=== PATIENT | female | born 1950 | race Caucasian/White ===

== ENCOUNTER → 2016-08-01 | Outpatient (CLI) | payer OTHER ==
[2016-08-01 14:58] LABS: BASOPHILS # (AUTO) 0.02 10*3/UL; BASOPHILS % (AUTO) 0.3 % (0-1); EOSINOPHILS % (AUTO) 0.9 % (0-8); HEMATOCRIT 43.7 % (37.0-47.0); IMM GRAN % (AUTO) 0.3 % (0-5); IMM GRAN# (AUTO) 0.02 10*3/UL; LYMPHOCYTES # (AUTO) 1.33 10*3/uL; LYMPHOCYTES % (AUTO) 19.6 % (10-50); MEAN CORPUSCULAR HEMOGLOBIN 34.8 PG (27-31); MEAN CORPUSCULAR HGB CONC 34.3 g/dL (33-37); MEAN PLATELET VOLUME 9.7 FL (7.4-12.2); MONOCYTES % (AUTO) 10.3 % (5-15); NEUTROPHILS # (AUTO) 4.64 10*3/UL; NEUTROPHILS % (AUTO) 68.6 % (50-80); RDW COEFFICIENT OF VARIATION 12.5 % (11.5-14.5); RED BLOOD COUNT 4.31 10^6/uL (4.20-5.40); WHITE BLOOD COUNT 6.77 10^3/uL (4.8-10.8)
[2016-08-01 15:01] LABS: PLATELET MORPHOLOGY COMMENT NORMAL MORPHOLOGY (NORM)
[2016-08-01 15:14] LABS: CHLORIDE 100 meq/L (98-112); POTASSIUM 3.9 meq/L (3.8-5.2); SODIUM 137 meq/L (135-145)
[2016-08-01 15:15] LABS: ASPARTATE AMINO TRANSFERASE 35 IU/L (8-39); BILIRUBIN,TOTAL 0.7 mg/dL (0.3-1.2); BLOOD UREA NITROGEN 6 mg/dL (7-22); CALCIUM 9.7 mg/dL (8.7-10.7); CREATININE 0.5 mg/dL (0.50-1.20); EST GLOMERULAR FILTRATION > 60 (>60 ml/min/1.73m(2)); GLUCOSE 163 mg/dL (78-110); TOTAL PROTEIN 8.5 g/dL (6.1-8.0)
--- NOTE | 2016-08-01 19:24 | DI ---
CT SOFT TISSUE NECK W/CONTRAST,08/01/2016 3:43 PM: Clinical History: Neck swelling Previous Exam: None at this facility. Findings: Multiple helically acquired CT images are obtained through the neck following the intravenous adminis tration of 75 cc of Isovue 300. The base of the skull is unremarkable and visualized portions of the [place] are unremarkabl e. The intraorbital structures are unremarkable. There is complete opacification of the right maxillary sinus. There is also some opacification of the right ethmoid sinuses. The mastoid air cells are unremarkable. Diffuse degenerative changes are seen throughout the cervical spine. Multiple symmetric cervical lymph nodes are noted none of which are pathologic by size criteria. Ther e is no fluid collection identified. Diffuse facet hypertrophy is seen throughout the cervical spine worst at the C5/6 and C6/7 levels whe re there is uncovertebral joint and facet hypertrophy. Impression: 1. Complete opacification of the right maxillary sinus and right ethmoid sinuses consistent with sinu sitis. 2. No pathologically enlarged lymph nodes. 3. No fluid collection.
[2016-08-04 07:10] LABS: SMITH ANTIBODY <0.2 U (())
== END ==
LOC: LAB 14:36
PROVIDERS: ATTEND Student in an Organized Health Care Education/Training Program
DX: R22.1 Localized swelling, mass and lump, neck (principal); R63.0 Anorexia; R13.10 Dysphagia, unspecified; M33.90 Dermatopolymyositis, unspecified, organ involvement unspecified; I10 Essential (primary) hypertension; F17.210 Nicotine dependence, cigarettes, uncomplicated
CPT/HCPCS: 36415; 70491; 80053; 85025; 86235

== ENCOUNTER 2016-09-20 08:39 | Inpatient (IN) | payer OTHER ==
[2016-09-20] MEDS ORDERED: Sodium Chloride 0.9% 1,000 ML PRIMARY IV ONE (08:50)
--- NOTE | 2016-09-20 08:54 | EKG ---
[address] [address] Measurements Intervals [place] Rate: 62 P: 73 ID: [id number] QRS: 57 QRSD: 96 T: 43 QT: 410 QTc: 415 Interpretive Statements SINUS RHYTHM Compared to ECG 07/23/2016 14:35:25 No significant changes Electronically Signed On 09-20-16 11:04:32 MST by Dimas Card MD [email or web address]
--- NOTE | 2016-09-20 09:11 | DI ---
CT HEAD W/O CONTRAST,09/20/2016 8:48 AM: Clinical History: Left-sided weakness Previous Exam: None at this facility. Findings: Multiple helically acquired CT images are obtained through the brain without contrast, and demonstrat e age-related volume loss. There is no mass, hemorrhage or midline shift. Surrounding soft tissue and osseous structures are unremarkable. Impression: Normal CT head.
[2016-09-20 09:57] LABS: BASOPHILS # (AUTO) 0.02 10*3/UL; BASOPHILS % (AUTO) 0.3 % (0-1); EOSINOPHILS % (AUTO) 0.9 % (0-8); HEMATOCRIT 46.9 % (37.0-47.0); HEMOGLOBIN 16.2 g/dL (12.0-16.0); IMM GRAN % (AUTO) 0.1 % (0-5); IMM GRAN# (AUTO) 0.01 10*3/UL; LYMPHOCYTES # (AUTO) 0.99 10*3/uL; LYMPHOCYTES % (AUTO) 12.8 % (10-50); MEAN CORPUSCULAR HEMOGLOBIN 34.2 PG (27-31); MEAN CORPUSCULAR HGB CONC 34.5 g/dL (33-37); MONOCYTES # (AUTO) 0.63 10*3/UL (0.3-0.8); MONOCYTES % (AUTO) 8.1 % (5-15); NEUTROPHILS # (AUTO) 6.02 10*3/UL; NEUTROPHILS % (AUTO) 77.8 % (50-80); RDW COEFFICIENT OF VARIATION 13.1 % (11.5-14.5); RED BLOOD COUNT 4.73 10^6/uL (4.20-5.40); WHITE BLOOD COUNT 7.74 10^3/uL (4.8-10.8)
[2016-09-20 10:00] LABS: PROTHROMBIN TIME 10.7 secs (9.7-11.4)
[2016-09-20 10:02] LABS: ASPARTATE AMINO TRANSFERASE 36 IU/L (8-39); BILIRUBIN,TOTAL 0.7 mg/dL (0.3-1.2); BLOOD UREA NITROGEN 4 mg/dL (7-22); BUN/CREATININE RATIO 6.66 (6-20); CALCIUM 10.6 mg/dL (8.7-10.7); CHLORIDE 98 meq/L (98-112); CREATININE 0.6 mg/dL (0.50-1.20); EST GLOMERULAR FILTRATION > 60 (>60 ml/min/1.73m(2)); GLUCOSE 85 mg/dL (78-110); POTASSIUM 4.1 meq/L (3.8-5.2); SERUM ALCOHOL 27 mg/dL (0-10); SODIUM 140 meq/L (135-145); TOTAL PROTEIN 8.2 g/dL (6.1-8.0)
[2016-09-20 10:03] LABS: PLATELET MORPHOLOGY COMMENT NORMAL MORPHOLOGY (NORM)
[2016-09-20] MEDS ORDERED: Sodium Chloride 0.9% 1,000 ML PRIMARY IV SCH (10:53)
[2016-09-20] MEDS ORDERED: LABETALOL 20 MG/4 ML (5 MG/1 ML) SYRINGE IVP PRN (10:53)
[2016-09-20] MEDS ORDERED: NORMAL SALINE 10 ML SYRINGE FLUSH IVP PRN (10:53)
[2016-09-20 11:16] LABS: LDL CHOLESTEROL,CALCULATED 160.6 mg/dL
[2016-09-20] MEDS ORDERED: Acetaminophen 1000mg Inj 1,000 MG in Premix 1 BAG IV ONE (11:27)
[2016-09-20 12:01] VITALS: RESP 20
[2016-09-20] MEDS ORDERED: ASPIRIN 600 MG SUPPOSITORY RECTAL ONE ×2 (12:15→12:30)
[2016-09-20 13:44] VITALS: TEMP 98.4
--- NOTE | 2016-09-20 13:47 | DI ---
MRI MRA HEAD W/O CN,09/20/2016 10:53 AM: Clinical History: Stroke. Previous Exam: None at this facility. Findings: Multiplanar MR images are obtained through the [place] following a 3-D [id number] protoc ol, and demonstrate no flow related enhancement within the right distal internal carotid artery. Ther e is some reconstitution of the right middle cerebral artery through a diminutive right posterior com municating artery. Left posterior communicating artery is also diminutive. The anterior communicating artery is intact. The anterior cerebral arteries are also intact. There is very little flow within the right cerebral hemisphere involving the right frontal, parietal and temp oral lobes. Impression: No flow related enhancement within the right distal internal carotid artery. This is consistent with an occlusion.
--- NOTE | 2016-09-20 13:53 | PDOC ---
History and Physical - History of Present Illness Date and Time of Service: 09/20/2016, 1345 Chief Complaint: Left-sided weakness History of Present Illness: This very pleasant 58-year-old female who has underlying history of hypertension who smokes and also drinks alcohol, who was found by her boyfriend to not be able to get up. The patient had complete left-sided weakness, left facial droop, and some slurred speech and she was brought in for evaluation. She was found to have a negative CT scan for bleed, and her blood pressure. Controlled. I ordered a cholesterol panel and showed elevated cholesterol. She appears to have complete left-sided neglect and her head is turned towards the right. She denies any pain other than a temporal headache. She's never had anything like this happen before there were no exacerbating factors. Time of onset is not known. Nothing made her symptoms better or worse. We admitted her, and I ordered MRI scans of the brain, and I just received a call from the radiologist stating that the right carotid artery appears almost completely occluded at their is a tiny amount of blood flow and there is also blood flow in the posterior communicating artery and he wondered if the patient might be a candidate for catheter directed thrombolytic therapy. She is right-handed. Past Medical History Medical History: 1. Tobacco abuse. 2. Hypertension. 3. Increased intraocular pressure. Surgical History: 1. Hysterectomy. 2. Lumpectomy Pertinent Family History: Positive for breast cancer. Past Social History: Smokes a pack per day, drinks 2 mugs of hard liquor per day. Has children that are described as healthy. Lives with her boyfriend. Tobacco Use: Current Every Day Smoker Substance Use Type: None Alcohol Use: Heavy Medication / Allergies Home Medications: Home Medications Medication Instructions Recorded Confirmed Type Calcium Carbonate/Vitamin D3 2 each PO DAILY 05/13/12 09/20/16 History [Calcium 600 + Vit D 400 Caplet] Aspirin 81 mg PO DAILY 04/14/14 09/20/16 History Zinc 50 mg PO DAILY 04/14/14 09/20/16 History Metoprolol Succinate 1 tab PO DAILY #90 tab 07/18/15 09/20/16 Clinic Potassium Gluconate 1 tab PO QD tab 08/31/15 09/20/16 History Propylene Glycol/Peg 400 [Systane 15 ml OP DAILY drp 08/31/15 09/20/16 History Ultra 0.4-0.3% Eye Drp] Brimonidine Tartrate/Timolol 1 drop OP QAM drop 10/30/15 09/20/16 History [Combigan 0.2%-0.5% Eye Drops] Amlodipine Besylate 1 tab PO DAILY #90 tab 04/11/16 09/20/16 Clinic Estradiol [Vagifem] 10 mcg VG 2XW #24 tab 04/11/16 09/20/16 Clinic Sulfasalazine 500 mg PO BID tab 05/29/16 09/20/16 History Levothyroxine Sodium [Synthroid] 1 tab PO DAILY tab 07/23/16 09/20/16 History Allergies/Adverse Reactions: Allergies Allergy/AdvReac Type Severity Reaction Status Date / Time varenicline tartrate Allergy Intermediate HIGH Verified 09/20/16 09:02 [From Chantix] ANXIETY PRED FORTE EYE DROP AdvReac Intermediate INCREASED Uncoded 09/20/16 09:02 EYE PRESSURE, PAIN Review of Systems - Review of Systems All Systems: Reviewed & No Additional Complaints Except as Stated (I did a 12 point review systems, and it is positive for a temporal headache and that discussed in history present illness. The patient has not been able to use the last side of her body.) Exam - Vitals Vital Signs: Vital Signs Temperature 98.4 F Temperature Source Oral Pulse Rate [Pulse Oximeter] 59 Respiratory Rate 20 Blood Pressure [Right Radial 139/67 Artery] Pulse Ox 96 Oxygen Flow Rate 2 Oxygen Delivery Method Nasal Cannula Height 5 ft 4 in Weight 126 lb 14.4 oz - General General Appearance: POSITIVE: No Acute Distress, Cooperative - Head Head Exam: POSITIVE: Normal Inspection, Normocephalic, Atraumatic - Eye Eye Exam: POSITIVE: No Scleral Icterus - ENT ENT Exam: POSITIVE: Mucous Membranes Moist - Neck Neck Exam: POSITIVE: Normal Inspection, No Tenderness, No Thyromegaly - Respiratory Respiratory Exam: POSITIVE: Clear to Auscultation - Bilaterally, Normal To Percussion - Cardiovascular Cardiovascular Exam: POSITIVE: RRR, No Murmur, No Clicks, No Gallops, No Rubs, No JVD Additional Cardiovascular Details: No carotid bruits. Harder to hear sounds on the right. - GI/Abdominal GI/Abdominal Exam: POSITIVE: Normal Bowel Sounds, Non Tender, Non Distended, Soft - Rectal Rectal Exam: POSITIVE: Deferred - External Exam: POSITIVE: Deferred Exam: POSITIVE: Deferred - Extremities Extremities Exam: POSITIVE: No Clubbing Present, No Edema Present, No Cyanosis Present - Neurological Neurological Exam: POSITIVE: Alert, Oriented x 3 Additional Neurological Exam Details: Positive for facial droop and some mild slurring of speech. She seems to have intact expressive and receptive speech. Muscle strength for left upper and lower extremity is 0 over 5. - Psychiatric Additional Psychiatric Exam Details: Looks very tired. Difficult to assess affect at this time. - Integumentary Integumentary Exam: POSITIVE: Normal Color, Warm, Dry, Intact Results - Labs CBC and BMP: 09/20/16 08:30 09/20/16 08:30 Labs - Last 24 Hours: Laboratory Results 09/20/16 Range/Units 11:08 Triglycerides 107 (44-200) mg/dL Cholesterol 253 H (120-200) mg/dL LDL Cholesterol, Calc 160.600 mg/dL VLDL Cholesterol 21 (0-40) mg/dL HDL Cholesterol 71 (40-150) mg/dL Cholesterol/HDL Ratio 3.56 (0-4.0) RATIO Laboratory Results 09/20/16 09/20/16 Range/Units 08:30 11:08 WBC 7.74 (4.8-10.8) 10^3/uL RBC 4.73 (4.20-5.40) 10^6/uL Hgb 16.2 H (12.0-16.0) g/dL Hct 46.9 (37.0-47.0) % MCV 99.2 H (81-99) FL MCH 34.2 H (27-31) PG MCHC 34.5 (33-37) g/dL RDW Std Deviation 47.6 (39-50) fL RDW Coeff of Bernadette 13.1 (11.5-14.5) % Plt Count 202 (140-350) 10*3/uL MPV 11.0 (7.4-12.2) FL Immature Gran % (Auto) 0.1 (0-5) % Neut % (Auto) 77.8 (50-80) % Lymph % (Auto) 12.8 (10-50) % [place] % (Auto) 8.1 (5-15) % Eos % (Auto) 0.9 (0-8) % Baso % (Auto) 0.3 (0-1) % Immature Gran # (Auto) 0.01 10*3/UL Neut # (Auto) 6.02 10*3/UL Lymph # (Auto) 0.99 10*3/uL [place] # (Auto) 0.63 (0.3-0.8) 10*3/UL Eos # (Auto) 0.07 10*3/UL Baso # (Auto) 0.02 10*3/UL WBC Morphology Comment Normal morphology (NORM) Plt Morphology Comment Normal morphology (NORM) RBC Morph Comment Normal morphology (NORM) PT 10.7 (9.7-11.4) secs INR 1.04 (0.00-5.90) N/A Sodium 140 (135-145) meq/L Potassium 4.1 (3.8-5.2) meq/L Chloride 98 (98-112) meq/L Carbon Dioxide 26 (23-33) meq/L Anion Gap 16 (5-20) BUN 4 L (7-22) mg/dL Creatinine 0.6 (0.50-1.20) mg/dL Estimated GFR > 60 (>60 ml/min/1.73m(2)) BUN/Creatinine Ratio 6.66 (6-20) Glucose 85 (78-110) mg/dL Calculated Osmolality 285.0 (267-292) mOsm/kg Calcium 10.6 (8.7-10.7) mg/dL Total Bilirubin 0.7 (0.3-1.2) mg/dL AST 36 (8-39) IU/L ALT 34 (9-52) IU/L Alkaline Phosphatase 110 (38-126) IU/L Total Protein 8.2 H (6.1-8.0) g/dL Albumin 4.6 (3.5-4.8) g/dL Globulin 3.6 (2.50-4.10) g/dL Albumin/Globulin Ratio 1.20 L (1.3-2.0) mg/g Triglycerides 107 (44-200) mg/dL Cholesterol 253 H (120-200) mg/dL LDL Cholesterol, Calc 160.600 mg/dL VLDL Cholesterol 21 (0-40) mg/dL HDL Cholesterol 71 (40-150) mg/dL Cholesterol/HDL Ratio 3.56 (0-4.0) RATIO Serum Alcohol 27 H (0-10) mg/dL - EKG Data -: EKG Interpreted by Me Rate: Normal EKG Shows Normal: Sinus Rhythm - Imaging Status: Image Reviewed by Me (Head CT scan, on my view, appears negative for acute bleed. MRA of the neck, I discussed with radiology, and it appears that there may be a brachiocephalic occlusion causing a steal phenomenon and STeal syndrome.) Assessment and Plan - Patient Problems (1) Stroke Current Visit: Yes Status: Acute Qualifiers: CVA mechanism: occlusion Precerebral and cerebral artery: carotid artery Laterality of affected vessel: right Qualified Description: Cerebrovascular accident (CVA) due to occlusion of right carotid artery Qualifier Code(s): (I63.231) Cerebral infarction due to unspecified occlusion or stenosis of right carotid arteries (2) Left hemiplegia Current Visit: Yes Status: Acute (3) Hypertension Current Visit: Yes Status: Acute Qualifiers: Hypertension type: essential hypertension Qualified Description: Essential hypertension Qualifier Code(s): (I10) Essential (primary) hypertension (4) Tobacco abuse Current Visit: Yes Status: Acute (5) Alcohol abuse Current Visit: Yes Status: Acute (6) Arterial steal syndrome Current Visit: Yes Status: Acute - Assessment / Plan Additional Assessment/Plan Details: Admit the patient, get MRIs as mentioned. Blood pressure discrepancy on the right shows 156/89, on the left 186/83 We have patient on a 45 angle and if kept her nothing by mouth. DVT Prophylaxis and aspirin rectally. Given the findings above I will call the interventional radiologist in [place] and the neurology team and hospitalist as this patient may benefit from catheter directed thrombo-lytic therapy. I have pushed the films up to [place] to discuss. needs statin would like to get swallow eval and then resume PO medications, and likely will need plavix smoking and alcohol cessation. I discussed code status and the patient is FULL CODE. Permissive hypertension. Tylenol for headache and when necessary for fever. Telemetry monitoring, reassuring the EKG is normal sinus, but when I make sure we were not missing atrial fibrillation as well. PT and OT evaluation.
--- NOTE | 2016-09-20 13:54 | DI ---
MRI BRAIN W/O CN,09/20/2016 10:53 AM: Clinical History: Stroke. Previous Exam: None at this facility. Findings: Multiplanar MR images are obtained through the brain without contrast, and demonstrate diffuse age-re lated volume loss. There is a large area of restricted diffusion involving the right frontal, parieta l and temporal lobes in the middle cerebral artery territory. There is also soft tissue density withi n the right maxillary sinus. There is no mass, hemorrhage or midline shift. There are a few scattered areas of increased FLAIR sig nal although the region of abnormally restricted diffusion only demonstrates mild early increased FLA IR signal and imperceptible T2 signal. The midline structures are unremarkable. The upper cervical spine is unremarkable. Impression: Large right MCA acute stroke with involvement of a large portion of the right frontoparietal and temp oral lobes. Right maxillary sinus disease.
--- NOTE | 2016-09-20 14:16 | DI ---
MRI MRA NECK W/O CN,09/20/2016 10:53 AM: Clinical History: Stroke Previous Exam: Previous CT and MRI from earlier today. Findings: 2-D [id number]-[id number] images are obtained through the neck, and demonstrate complete occlusion of the br achiocephalic artery without any visible flow in the common carotid artery. There is flow noted withi n the right subclavian artery, right vertebral artery however, evaluation is limited due to out of pl ane imaging of the right subclavian artery. The left carotid artery we appears to be widely patent with some mild disease within the bulb. Both vertebral arteries are patent although there is loss of signal within the proximal portions whic h is most likely due to tortuosity rather than to a true occlusion. Visualized portion of the basilar artery are unremarkable. There is some decreased signal in the dist al right vertebral artery, but this is also believed to be secondary to tortuosity in the vessel. The aortic arch is not well evaluated on this exam. Impression: Complete occlusion of the brachiocephalic artery with some flow seen within the subclavian artery and the vertebral artery although it is impossible to tell whether this is a subclavian steal syndrome. This does not appear to be a chronic subclavian steal syndrome as the right vertebral artery is small and the right posterior communicating artery is also small. Consider conventional angiography for fu rther evaluation.
--- NOTE | 2016-09-20 15:09 | DCSUMMARY ---
Hospitalization Summary Admit Date: 09/19/16 Discharge Date: 09/20/16 Primary Diagnosis:: stroke with left hemiparesis Hospital Course: This is a 66-year-old female who suffers from hypothyroidism, hypertension, tobacco abuse, and alcohol abuse. She was found by her boyfriend this morning to have left-sided weakness, slurred speech, and a droopy face, and she was brought in for evaluation, and found to have a stroke. We admitted her, got MRI and MRA scans done today, and found that she had a complete right carotid artery occlusion. I spoke with the neurologist and interventional radiologist in [place], and the patient is not a candidate for catheter directed thrombolytic therapy because it would be too high risk to bleed. However when I spoke to neurology, they felt the patient would be at increased risk for edema due to the size of the stroke and the stroke mechanism, which could put the patient at risk for needing hemicraniotomy to relieve pressure. Given this potential risks, I really have no way to monitor with head CT scans over the weekend as I do not have an in-house radiologist and it may take too long to respond to increased intracranial pressure from the stroke if that happens. [place] safer to transfer the patient, and spoke with the hospitalist who agreed to accept the patient. The neurologist will consult. In the time the patient was here, we gave her a dose of aspirin, have kept her nothing by mouth due to fear of aspiration risk, have allowed permissive hypertension, found that her cholesterol was elevated in order to statin, given Tylenol for headache, and ordered PT and OT. The patient is agreeable to transfer. She told me that she would be full code. Assessment and Plan: 1. As per discharge assessments noted 2. Disposition: Patient is discharged from [facility] 3. Condition on discharge, stable, but the nature of her condition could mean that her condition could deteriorate 4. Diet: Nothing by mouth 5. Activities: PT and OT 6. Follow-Up: 1. Primary care provider 7 days post discharge. 2. 7. Medications at the Time of Discharge: Active Medications Generic Name Dose Route Start Last Admin Trade Name Freq PRN Reason Stop Dose Admin Aspirin 600 mg 09/21/16 09:00 Aspirin Supp RECTAL DAILY VICTOR HUGO Atorvastatin Calcium 80 mg 09/20/16 21:00 Lipitor PO BEDTIME VICTOR HUGO Enoxaparin Sodium 40 mg 09/21/16 09:00 Lovenox Inj SUBCUT DAILY VICTOR HUGO Sodium Chloride 1,000 mls @ 125 mls/hr 09/20/16 10:53 09/20/16 13:11 Normal Saline PRIMARY IV 125 mls/hr .Q8H VICTOR HUGO Administration Sodium Chloride 25 mls @ 200 mls/hr 09/20/16 10:53 Normal Saline 0.9% IV .Post Infusion PRN No Primary IV for Flush ONLY Labetalol HCl 10 mg 09/20/16 10:53 Normodyne Inj IVP BOLUS PRN SBP > 220, DBP > 120 Levothyroxine Sodium 75 mcg 09/21/16 06:30 Synthroid PO DAILY@0630 VICTOR HUGO Pom (Brimonidine / 1 drop 09/21/16 09:00 Timolol [Combigan 0. OP 2%-0.5% Eye Drops] DAILY VICTOR HUGO Non-Formulary Medication 15 ml 09/21/16 09:00 Propylene Glycol/Peg 400 [Systane Ultra 0.4-0.3% Eye Drp] OP DAILY VICTOR HUGO Sodium Chloride 5 - 20 ml 09/20/16 10:53 Saline Flush IVP BID PRN Flush 8. Time, care, counseling and coordination of care for this discharge is greater than 30 minutes. Exam - Vitals Vital Signs: Vital Signs Temperature 98.4 F Temperature Source Oral Pulse Rate [Pulse Oximeter] 59 Respiratory Rate 20 Blood Pressure [Right Radial 139/67 Artery] Pulse Ox 96 Oxygen Flow Rate 2 Oxygen Delivery Method Nasal Cannula Height 5 ft 4 in Weight 126 lb 14.4 oz Note her blood pressure discrepancy in the right and left arm was 30 points difference on systolic blood pressure with it being higher on the right than the left. - General General Appearance: POSITIVE: Cooperative - Respiratory Respiratory Exam: POSITIVE: Clear to Auscultation - Bilaterally, Breathing Non Labored Additional Respiratory Exam Details: Coughing. - Cardiovascular Cardiovascular Exam: POSITIVE: RRR, No Murmur, No Clicks, No Gallops, No Rubs, No JVD - GI/Abdominal GI/Abdominal Exam: POSITIVE: Normal Bowel Sounds, Non Tender, Non Distended, Soft - Extremities Extremities Exam: POSITIVE: No Clubbing Present, No Edema Present, No Cyanosis Present - Neurological Neurological Exam: POSITIVE: Alert, Oriented x 3 Additional Neurological Exam Details: Facial droop and 0 over 5 muscle strength for left upper and lower extremity. Data Perinent Studies: Laboratory Results 09/20/16 09/20/16 Range/Units 08:30 11:08 WBC 7.74 (4.8-10.8) 10^3/uL RBC 4.73 (4.20-5.40) 10^6/uL Hgb 16.2 H (12.0-16.0) g/dL Hct 46.9 (37.0-47.0) % MCV 99.2 H (81-99) FL MCH 34.2 H (27-31) PG MCHC 34.5 (33-37) g/dL RDW Std Deviation 47.6 (39-50) fL RDW Coeff of [place] 13.1 (11.5-14.5) % Plt Count 202 (140-350) 10*3/uL MPV 11.0 (7.4-12.2) FL Immature Gran % (Auto) 0.1 (0-5) % Neut % (Auto) 77.8 (50-80) % Lymph % (Auto) 12.8 (10-50) % [place] % (Auto) 8.1 (5-15) % Eos % (Auto) 0.9 (0-8) % Baso % (Auto) 0.3 (0-1) % Immature Gran # (Auto) 0.01 10*3/UL Neut # (Auto) 6.02 10*3/UL Lymph # (Auto) 0.99 10*3/uL [place] # (Auto) 0.63 (0.3-0.8) 10*3/UL Eos # (Auto) 0.07 10*3/UL Baso # (Auto) 0.02 10*3/UL WBC Morphology Comment Normal morphology (NORM) Plt Morphology Comment Normal morphology (NORM) RBC Morph Comment Normal morphology (NORM) PT 10.7 (9.7-11.4) secs INR 1.04 (0.00-5.90) N/A Sodium 140 (135-145) meq/L Potassium 4.1 (3.8-5.2) meq/L Chloride 98 (98-112) meq/L Carbon Dioxide 26 (23-33) meq/L Anion Gap 16 (5-20) BUN 4 L (7-22) mg/dL Creatinine 0.6 (0.50-1.20) mg/dL Estimated GFR > 60 (>60 ml/min/1.73m(2)) BUN/Creatinine Ratio 6.66 (6-20) Glucose 85 (78-110) mg/dL Calculated Osmolality 285.0 (267-292) mOsm/kg Calcium 10.6 (8.7-10.7) mg/dL Total Bilirubin 0.7 (0.3-1.2) mg/dL AST 36 (8-39) IU/L ALT 34 (9-52) IU/L Alkaline Phosphatase 110 (38-126) IU/L Total Protein 8.2 H (6.1-8.0) g/dL Albumin 4.6 (3.5-4.8) g/dL Globulin 3.6 (2.50-4.10) g/dL Albumin/Globulin Ratio 1.20 L (1.3-2.0) mg/g Triglycerides 107 (44-200) mg/dL Cholesterol 253 H (120-200) mg/dL LDL Cholesterol, Calc 160.600 mg/dL VLDL Cholesterol 21 (0-40) mg/dL HDL Cholesterol 71 (40-150) mg/dL Cholesterol/HDL Ratio 3.56 (0-4.0) RATIO Serum Alcohol 27 H (0-10) mg/dL Patient Problems - Patient Problem List (1) Stroke Current Visit: Yes Status: Acute Qualifiers: CVA mechanism: occlusion Precerebral and cerebral artery: carotid artery Laterality of affected vessel: right Qualified Description: Cerebrovascular accident (CVA) due to occlusion of right carotid artery Qualifier Code(s): (I63.231) Cerebral infarction due to unspecified occlusion or stenosis of right carotid arteries (2) Left hemiplegia Current Visit: Yes Status: Acute (3) Hypertension Current Visit: Yes Status: Acute Qualifiers: Hypertension type: essential hypertension Qualified Description: Essential hypertension Qualifier Code(s): (I10) Essential (primary) hypertension (4) Tobacco abuse Current Visit: Yes Status: Acute (5) Alcohol abuse Current Visit: Yes Status: Acute (6) Arterial steal syndrome Current Visit: Yes Status: Suspected
[2016-09-20] MEDS ORDERED: ATORVASTATIN 40 MG TABLET PO SCH (21:00)
--- NOTE | 2016-09-21 01:08 | PDOC ---
Neuro Symptoms / Deficit HPI - General Chief Complaint: Neurological Complaints Stated Complaint: POSSIBLE STROKE Date Seen by Provider: 09/20/16 Time Seen by Provider: 08:55 Source: POSITIVE: Patient Exam Limitations: POSITIVE: No limitations Nurse's Notes Reviewed & Considered: Yes - History of Present Illness Initial Comments: The patient is a 66-year-old female. She is brought to the emergency room by her mounter hand, who lives with her. Patient arrived at 0839 and was initially seen by Dr. King, who ordered a CT scan of the head; I assumed care of the patient at 8:55 AM. Patient awoke about 1-1/2 hours [employer] and was not able to get out of bed because of left sided weakness. She called out to her mounter hand who picked her up and center on the commode and then put her back to bed and called 911 and the patient is brought to the emergency room by ambulance. Patient smokes a pack of cigarettes per day. History of hypertension. Body Location Affected: REPORTS: Other (Left side of face, left upper extremity and left lower extremity) Timing: REPORTS: Unknown (Patient awoke with left hemiplegia; this developed sometime during the night. Patient apparently was normal when she went to bed last night) Duration: Unknown (As above) Severity: Moderate Quality: REPORTS: Other (Patient denies any headache; denies any pain anywhere.) Context: DENIES: Insect Bite, Tick Bite, Falling Injury, Head Injury, Other Character of Deficit(s): REPORTS: Left, LUE, LLE, Facial (Left side of face), Weak (Left hemiplegia) Associated Symptoms: DENIES: Fever, Chills, Sweating, Chest Pain, Neck Pain, Back Pain, Headache, Fainting, Seizure, Altered Mental Status, Disoriented, Confused, Agitated, Trouble Concentrating, Trouble Thinking, Decreased Responsiveness, Unresponsive, Other Usual Ability to Walk/Stand: REPORTS: Walks w/o Assistance Usual Cognition: REPORTS: Alert & Oriented x3 Similar Symptoms Previously: No Recently seen/treated/hospitalized: No Any Prior Injuries Related to Current Complaint?: No - Patient Home Medications Home Medications: Home Medications Calcium Carbonate/Vitamin D3 [Calcium 600 + Vit D 400 Caplet] 2 each PO DAILY Aspirin 81 mg PO DAILY 04/14/14 Zinc 50 mg PO DAILY 09/18/14 Metoprolol Succinate 1 tab PO DAILY #90 tab 07/18/15 Potassium Gluconate 1 tab PO QD tab 08/31/15 Propylene Glycol/Peg 400 [Systane Ultra 0.4-0.3% Eye Drp] 15 ml OP DAILY drp Brimonidine Tartrate/Timolol [Combigan 0.2%-0.5% Eye Drops] 1 drop OP QAM drop 10/30/15 Amlodipine Besylate 1 tab PO DAILY #90 tab 04/11/16 Estradiol [Vagifem] 10 mcg VG 2XW #24 tab 04/11/16 Sulfasalazine 500 mg PO BID tab 05/29/16 Levothyroxine Sodium [Synthroid] 1 tab PO DAILY tab 07/23/16 - Patient Allergies Allergies/Adverse Reactions: Allergies Allergy/AdvReac Type Severity Reaction Status Date / Time varenicline tartrate Allergy Intermediate HIGH Verified 09/20/16 09:02 [From Chantix] ANXIETY PRED FORTE EYE DROP AdvReac Intermediate INCREASED Uncoded 09/20/16 09:02 EYE PRESSURE, PAIN Past Medical History - heen HEENT History: Cataracts, Chipped or Loose Teeth Additional HEENT History: BROKEN TEETH ALL OVER. Cardiovascular History: Hypertension Respiratory History: Shortness of Breath Additional Respiratory History: SOB AFTER EYE DROPS. DR. HEMPHILL SAID THAT MAY HAPPEN Gastrointestinal History: GI Bleed Additional Gastrointestinal History: reactal bleeding 1 year ago Genitourinary History: Denies History Endocrine History: Hypothyroidism Musculoskeletal History: Osteoporosis, Back Pain Prosthesis or Implant: No Neurological History: Denies History Blood Disorders: Denies History Psychiatric History: Denies History History of Sexually Transmitted Diseases: No Cancer History: Breast In Past Year Been Physically Harmed or Verbally Threatened: No History of MDRO: Unknown History of Other Communicable Diseases: No Tobacco Use: Current Every Day Smoker Alcohol Use: Occasionally Substance Use Type: None Previous Surgical History: Yes Type / Date of Surgery: BILAT CATARACT. BILAT EYE SURGERY RETINAL TEAR/HOLE. 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 HYSTERECTOMY Anesthesia Reactions: No Malignant Hyperthermia: No Significant Family History: No pertinent family hx Past Medical History Reviewed: Reviewed - No Changes ROS - Limitations ROS Limitations: No Limitations Constitution: REPORTS: Denies Symptoms Cardiovascular: REPORTS: Denies Cardiac Symptoms Respiratory: REPORTS: Denies Resp Symptoms Neurological: REPORTS: Facial Asymmetry (Left), Weakness (Left hemiplegia involving the face without front talus sparing; prominent weakness left upper and left lower extremity) Gastrointestinal: REPORTS: Denies GI Symptoms Endocrine: REPORTS: Denies Symptoms Musculoskeletal: REPORTS: Denies MS Symptoms Genitourinary: REPORTS: Denies Symptoms Eyes: REPORTS: Denies Symptoms ENT: REPORTS: Denies Symptoms Skin: REPORTS: Denies Skin Symptoms Lympathic: REPORTS: Denies Lympathic Symptoms Immunologic: POSITIVE: Denies Symptoms Psychiatric: POSITIVE: Denies Psych Symptoms Neuro Symptoms / Deficit Exam - General Appearance General Appearance: POSITIVE: No Acute Distress, Alert - HEENT HEENT: POSITIVE: Head Inspection Nml, Eyes Inspection Nml, Ears Inspection Nml, Nose Inspection Nml, Oral/Dental Inspect. Nml, Pharynx Inspect. Nml, PERRL, EOMI - Pupil Size Pupil Size: 4 mm: Bilateral (PERRLA) - Neuro / Psych Higher Functions: POSITIVE: Speech Abnormalities (Speech somewhat slurred due to weakness left facial nerve), Dysarthria. NEGATIVE: Oriented to Person, Oriented to Place, Oriented to Time, Normal Speech, Normal Cognition, Appropriate Mood, Appropriate Affect, Disoriented to Person, Disoriented to Place, Disoriented to Time, Cognition Abnormalities, Depressed Mood, Depressed Affect, Abnml Response to Command, No Response to Command, Eyes Open to Command , Slow Response to Command, Inapp Response to Command, Expressive Aphasia, Receptive Aphasia, Abnml Response to Pain, Withdraws to Pain, Flexor to Pain, Extensor to Pain, No Response to Pain, Other Cranial Nerves: POSITIVE: Dysarthria, Facial Palsy (Left facial palsy), Forehead Involved Cerebellar: POSITIVE: Normal As Tested Peripheral Exam: POSITIVE: Hemiplegia (Left) Reflexes: Patellar (R): 2+, Patellar (L): 2+ - Neck Neck: POSITIVE: Supple, Non-Tender, No Carotid Bruit - Respiratory Respiratory: POSITIVE: No Respiratory Distress, Breath Sounds Normal - Cardiovascular Cardiovascular: POSITIVE: Regular Rate & Rhythm, Heart Sounds Normal Peripheral Pulses: Radial (R): 2+, Radial (L): 2+ - Abdomen Abdomen: Soft: (All Quadrants), Normal Bowel Sounds: (All Quadrants), Denies Tenderness: (All Quadrants), No Splenomegaly: (All Quadrants), No Hepatomegaly: (All Quadrants), No Guarding: (All Quadrants), No Rebound: (All Quadrants), No Palpable Pulse: (All Quadrants), No Palpabale Mass: (All Quadrants), No Distention: (All Quadrants), No Rigidity: (All Quadrants) - Skin Skin: POSITIVE: Intact, Normal For Race, Warm, Dry, No Rash - Extremities Extremity: Non-Tender: (All Extremities), Normal ROM: (All Extremities), Normal Inspection: (All Extremities) Images - Complete Complete: 1 - Left facial palsy 2 - Prominent weakness left upper extremity, including very weak hand grasp 3 - Weakness left lower extremity Neuro Symptom/Deficit Progress - Results Reviewed by me Xrays/CTs/US Reviewed by me: Yes Discussed with Radiologist: Yes Radiology Findings: CT scan head without contrast reported as normal by radiologist Lab Results Reviewed: Yes Lab Results:: Laboratory Results 09/20/16 Range/Units 08:30 WBC 7.74 (4.8-10.8) 10^3/uL RBC 4.73 (4.20-5.40) 10^6/uL Hgb 16.2 H (12.0-16.0) g/dL Hct 46.9 (37.0-47.0) % MCV 99.2 H (81-99) FL MCH 34.2 H (27-31) PG MCHC 34.5 (33-37) g/dL RDW Std Deviation 47.6 (39-50) fL RDW Coeff of Bernadette 13.1 (11.5-14.5) % Plt Count 202 (140-350) 10*3/uL MPV 11.0 (7.4-12.2) FL Immature Gran % (Auto) 0.1 (0-5) % Neut % (Auto) 77.8 (50-80) % Lymph % (Auto) 12.8 (10-50) % [place] % (Auto) 8.1 (5-15) % Eos % (Auto) 0.9 (0-8) % Baso % (Auto) 0.3 (0-1) % Immature Gran # (Auto) 0.01 10*3/UL Neut # (Auto) 6.02 10*3/UL Lymph # (Auto) 0.99 10*3/uL [place] # (Auto) 0.63 (0.3-0.8) 10*3/UL Eos # (Auto) 0.07 10*3/UL Baso # (Auto) 0.02 10*3/UL WBC Morphology Comment Normal morphology (NORM) Plt Morphology Comment Normal morphology (NORM) RBC Morph Comment Normal morphology (NORM) PT 10.7 (9.7-11.4) secs INR 1.04 (0.00-5.90) N/A Sodium 140 (135-145) meq/L Potassium 4.1 (3.8-5.2) meq/L Chloride 98 (98-112) meq/L Carbon Dioxide 26 (23-33) meq/L Anion Gap 16 (5-20) BUN 4 L (7-22) mg/dL Creatinine 0.6 (0.50-1.20) mg/dL Estimated GFR > 60 (>60 ml/min/1.73m(2)) BUN/Creatinine Ratio 6.66 (6-20) Glucose 85 (78-110) mg/dL Calculated Osmolality 285.0 (267-292) mOsm/kg Calcium 10.6 (8.7-10.7) mg/dL Total Bilirubin 0.7 (0.3-1.2) mg/dL AST 36 (8-39) IU/L ALT 34 (9-52) IU/L Alkaline Phosphatase 110 (38-126) IU/L Total Protein 8.2 H (6.1-8.0) g/dL Albumin 4.6 (3.5-4.8) g/dL Globulin 3.6 (2.50-4.10) g/dL Albumin/Globulin Ratio 1.20 L (1.3-2.0) mg/g Serum Alcohol 27 H (0-10) mg/dL EKG Interpreted/Reviewed By Me:: Yes (normal; normal sinus rhythm) EKG Interpretation:: POSITIVE: Normal Sinus Rhythm, Normal Rate, Normal Intervals, Normal [place], Normal QRS, Normal ST/T - Patient's Progress Pain Medication Addressed: POSITIVE: Not Applicable School/Work Release Addressed: POSITIVE: Not Applicable Re-Examine Time:: 10:00 Re-Examine Comment: Unchanged Status: POSITIVE: Unchanged, Re-Examined Antibiotics Given: No - Consult Consult (If Yes, Name of Consulting MD & Time Called): Yes (Dr. 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
[2016-09-21] MEDS ORDERED: LEVOTHYROXINE 75 MCG TABLET PO SCH (06:30)
[2016-09-21] MEDS ORDERED: LEVOTHYROXINE IVP SCH (06:30)
[2016-09-21] MEDS ORDERED: SODIUM CHLORIDE 0.9% IVP SCH (06:30)
[2016-09-21] MEDS ORDERED: PEG OP SCH (09:00)
[2016-09-21] MEDS ORDERED: TIMOLOL OP SCH (09:00)
[2016-09-21] MEDS ORDERED: ASPIRIN 600 MG SUPPOSITORY RECTAL SCH ×3 (09:00)
[2016-09-21] MEDS ORDERED: ASPIRIN 325 MG TABLET PO SCH (09:00)
[2016-09-21] MEDS ORDERED: PROPYLENE GLYCOL OP SCH (09:00)
[2016-09-21] MEDS ORDERED: ENOXAPARIN SODIUM 40 MG/0.4 ML SYRINGE SUBCUT SCH (09:00)
[2016-09-21] MEDS ORDERED: BRIMONIDINE OP SCH (09:00)
== END 2016-09-20 15:44 | disposition short-term general hospital (02) | DRG 65 ==
LOC: ER 08:39 → MED/SURG 10:16
PROVIDERS: ADMIT Family Medicine; ATTEND Family Medicine
DX: I63.9 Cerebral infarction, unspecified (principal); I63.231 Cerebral infarction due to unspecified occlusion or stenosis of right carotid arteries; G81.94 Hemiplegia, unspecified affecting left nondominant side; E03.9 Hypothyroidism, unspecified; I10 Essential (primary) hypertension; Z72.0 Tobacco use; F10.10 Alcohol abuse, uncomplicated
CPT/HCPCS: 70450; 70544; 70547; 70551; 80053; 80061; 80320; 82948; 85025; 85610; 93005; 93010; 99284; J0131; J7030

== ENCOUNTER → 2016-12-26 | Outpatient (CLI) | payer OTHER | LOC: MMPC 11:11 | PROVIDERS: ATTEND Nurse Practitioner | DX: I63.511 Cerebral infarction due to unspecified occlusion or stenosis of right middle cerebral artery (principal); G81.04 Flaccid hemiplegia affecting left nondominant side; M33.90 Dermatopolymyositis, unspecified, organ involvement unspecified | CPT/HCPCS: 99214; G0463 ==

== ENCOUNTER → 2017-01-08 | Outpatient (CLI) | payer OTHER ==
--- NOTE | 2017-01-08 12:58 | DI ---
US RETROPERITONEUM,01/08/2017 8:01 AM: Clinical History: Chronic cystitis Previous Exam: None at this facility. Findings: Multiple grayscale and color Doppler sonographic images are obtained through the retroperitoneum, and demonstrate normal-appearing kidneys bilaterally without hydronephrosis nor nephrolithiasis. The right kidney measures 9.3 cm in length. The left kidney measures 8.3 cm in length. Both ureteral jets were identified. The urinary bladder is unremarkable. Impression: Normal retroperitoneal ultrasound.
== END ==
LOC: US 07:53
PROVIDERS: ATTEND Internal Medicine Infectious Disease
DX: N30.20 Other chronic cystitis without hematuria (principal); B96.89 Other specified bacterial agents as the cause of diseases classified elsewhere
CPT/HCPCS: 76770

== ENCOUNTER → 2017-01-16 | Outpatient (CLI) | payer OTHER ==
[2017-01-16 15:33] LABS: BILIRUBIN,URINE SMALL (NEG); CLARITY,URINE Slightly Cloudy (CLEAR); COLOR,URINE YELLOW; GLUCOSE, URINE (UA) NEGATIVE (NEG); NITRATE,URINE POSITIVE (NEG); OCCULT BLOOD,URINE NEGATIVE (NEG); PH,URINE 5.5 (5.0-8.5); PROTEIN,URINE 30 mg/dl (NEG); UROBILINOGEN,URINE 0.2 mg/dL (0.2)
[2017-01-16 15:34] LABS: BACTERIA,URINE MANY; SQUAMOUS EPITHELIAL CELL,UR MODERATE; URINE CASTS MODERATE; URINE CRYSTALS MODERATE; URINE SAMPLE TYPE VOIDED SPECIMEN
[2017-01-16 15:35] LABS: WBC,URINE 25-50
== END ==
LOC: MOB LAB 13:28
PROVIDERS: ATTEND Nurse Practitioner
DX: R30.0 Dysuria (principal); R35.0 Frequency of micturition; R39.15 Urgency of urination; R82.99 Other abnormal findings in urine
CPT/HCPCS: 81001; 87077; 87088; 87186

== ENCOUNTER → 2017-01-25 | Outpatient (CLI) | payer OTHER ==
[2017-01-25 15:34] LABS: BILIRUBIN,URINE NEGATIVE (NEG); CLARITY,URINE CLEAR (CLEAR); COLOR,URINE YELLOW; GLUCOSE, URINE (UA) NEGATIVE (NEG); NITRATE,URINE NEGATIVE (NEG); OCCULT BLOOD,URINE Trace-intact (NEG); PROTEIN,URINE NEGATIVE (NEG); UROBILINOGEN,URINE 0.2 EU/dL (0.2)
[2017-01-25 15:40] LABS: URINE SAMPLE TYPE CLEAN CATCH URINE
[2017-01-25 15:41] LABS: BACTERIA,URINE RARE; RENAL EPITHELIAL CELLS,URINE RARE
== END ==
LOC: MOB LAB 12:18
PROVIDERS: ATTEND Nurse Practitioner
DX: R30.0 Dysuria (principal); R82.99 Other abnormal findings in urine
CPT/HCPCS: 81001; 81003; 87077; 87088; 87186

== ENCOUNTER 2017-02-04 12:25 | Emergency (ER) | payer OTHER ==
[2017-02-04] MEDS ORDERED: NORMAL SALINE 10 ML SYRINGE FLUSH IVP PRN (13:10)
[2017-02-04] MEDS ORDERED: Sodium Chloride 0.9% 1,000 ML PRIMARY IV ONE (13:10)
[2017-02-04 13:13] VITALS: RESP 16; TEMP 97
--- NOTE | 2017-02-04 13:16 | EKG ---
[address] [address] Measurements Intervals [place] Rate: 70 P: 79 AL: 136 QRS: 66 QRSD: 97 T: 81 QT: 401 QTc: 422 Interpretive Statements SINUS RHYTHM Compared to ECG 09/20/2016 08:51:42 No significant changes Electronically Signed On 02-04-17 15:35:27 MDT by Dimas Card MD [email or web address]
[2017-02-04 13:26] LABS: BASOPHILS # (AUTO) 0.02 10*3/UL; BASOPHILS % (AUTO) 0.3 % (0-1); EOSINOPHILS # (AUTO) 0.02 10*3/UL; EOSINOPHILS % (AUTO) 0.3 % (0-8); HEMATOCRIT 42.2 % (37.0-47.0); HEMOGLOBIN 13.3 g/dL (12.0-16.0); LYMPHOCYTES # (AUTO) 0.72 10*3/uL; MEAN CORPUSCULAR HEMOGLOBIN 29.8 PG (27-31); MEAN CORPUSCULAR HGB CONC 31.5 g/dL (33-37); MEAN CORPUSCULAR VOLUME 94.4 FL (81-99); MEAN PLATELET VOLUME 9.8 FL (7.4-12.2); MONOCYTES # (AUTO) 0.45 10*3/UL (0.3-0.8); MONOCYTES % (AUTO) 6.2 % (5-15); NEUTROPHILS # (AUTO) 6.06 10*3/UL; NEUTROPHILS % (AUTO) 83.3 % (50-80); RED BLOOD COUNT 4.47 10^6/uL (4.20-5.40)
[2017-02-04 13:29] LABS: PLATELET MORPHOLOGY COMMENT NORMAL MORPHOLOGY (NORM); RBC MORPHOLOGY COMMENT NORMAL MORPHOLOGY (NORM); WBC MORPHOLOGY COMMENT NORMAL MORPHOLOGY (NORM)
[2017-02-04 13:36] LABS: BLOOD UREA NITROGEN 6 mg/dL (7-22); CALCIUM 10.2 mg/dL (8.7-10.7); EST GLOMERULAR FILTRATION > 60 (>60 ml/min/1.73m(2)); MAGNESIUM 1.6 mg/dL (1.6-2.4); SERUM ALBUMIN 3.8 g/dL (3.5-4.8)
[2017-02-04 13:48] LABS: CREATINE KINASE MB 0.64 NG/ML (0.00-5.00); TROPONIN I < 0.012 ng/mL (< 0.040)
[2017-02-04] MEDS ORDERED: Fleet Enema 133ml RECTAL ONE (14:01)
--- NOTE | 2017-02-05 02:55 | PDOC ---
General Adult HPI - General Chief Complaint: Abdomen Pain Stated Complaint: constipation and syncopal episode on toilet Date Seen by Provider: 02/04/17 Time Seen by Provider: 12:50 Source: POSITIVE: Patient, EMS, Other (son) Exam Limitations: POSITIVE: No limitations Nurse's Notes Reviewed & Considered: Yes EMS Report Reviewed & Considered: Verbal - History of Present Illness Initial Comment: The patient is a 67 year old female. Patient states she's had no bowel movements for for 5 days. She complains of constipation. She states that she was straining on the commode trying to have a bowel movement and she became lightheaded and "felt like passing out". She did not have any syncope. Patient had a stroke in August and has left-sided hemiplegia and has recently been discharged from rehabilitation. No fevers or chills. No abdominal or chest pain. No headache. No vomiting or new neurologic symptoms. Have you received a tetanus shot in the past 10 years?: Unknown Body Location Affected: REPORTS: Abdomen (Constipation), Other ("[place]herty like passing out" while she was straining on the commode to have a bowel movement) Timing: REPORTS: Gradual (No bowel movement for 4-5 days) Duration: <1 week (4-5 days) Severity: Moderate Quality: REPORTS: Other (Patient denies any pain) Context: REPORTS: Other (Became lightheaded while performing a vigorous Valsalva maneuver trying to have a bowel movement) Modifying Factors: improves with: Defecating Similar Symptoms Previously: No Recent Care Received: REPORTS: Recently Seen, Treated by MD, Hospitalized (CVA resulting in left hemiplegia in August) Any Prior Injuries Related to Current Complaint?: No - Patient Home Medications Home Medications: Home Medications Calcium Carbonate/Vitamin D3 [Calcium 600 + Vit D 400 Caplet] 2 each PO DAILY Zinc 50 mg PO DAILY 04/14/14 Propylene Glycol/Peg 400 [Systane Ultra 0.4-0.3% Eye Drp] 15 ml OP DAILY drp Brimonidine Tartrate/Timolol [Combigan 0.2%-0.5% Eye Drops] 1 drop OP QAM drop 10/30/15 Levothyroxine Sodium [Synthroid] 1 tab PO DAILY #30 tab 12/26/16 Atorvastatin Calcium 1 tab PO QHS #30 tab 12/27/16 Clopidogrel Bisulfate [Plavix] 1 tab PO DAILY #30 tab 12/27/16 Duloxetine HCl 1 cap PO DAILY #30 cap 12/27/16 Estradiol [Vagifem] 10 mcg VG 2XW #24 tab 12/27/16 Gabapentin 1 cap PO QHS #30 cap 12/27/16 Ondansetron HCl [Zofran] 1 tab PO Q6H PRN #15 tab 12/27/16 Potassium Chloride 1 tab PO BID #60 tab 12/27/16 Sulfasalazine 500 mg PO BID #60 tab 12/27/16 Acetaminophen [Acetaminophen 8 Hour] 1 tab PO Q4-6H PRN tab 01/02/17 Aspirin [Aspir-Low] 1 tab PO DAILY tab 01/02/17 Latanoprost 1 drop EACH EYE QHS drop 01/02/17 Magnesium Oxide [Magnesium] 1 tab PO QD tab 01/02/17 Multivitamin [Multi-Vitamin Daily] 1 each PO QD tab 01/02/17 Psyllium Husk (with Sugar) [Metamucil Powder] 1 tbs PO QD 01/02/17 Sulfamethoxazole/Trimethoprim [Bactrim Ds Tablet] 1 tab PO BID #6 tab 01/21/17 - Patient Allergies Allergies/Adverse Reactions: Allergies Allergy/AdvReac Type Severity Reaction Status Date / Time varenicline tartrate AdvReac Intermediate HIGH Verified 02/04/17 12:40 [From Chantix] ANXIETY PRED FORTE EYE DROP AdvReac Intermediate INCREASED Uncoded 02/04/17 12:40 EYE PRESSURE, PAIN Past Medical History - heen HEENT History: Cataracts, Chipped or Loose Teeth Additional HEENT History: BROKEN TEETH ALL OVER. Cardiovascular History: Hypertension Respiratory History: Shortness of Breath Additional Respiratory History: SOB AFTER EYE DROPS. DR. HEMPHILL SAID THAT MAY HAPPEN Gastrointestinal History: GI Bleed Additional Gastrointestinal History: reactal bleeding 1 year ago Genitourinary History: Denies History Endocrine History: Hypothyroidism Musculoskeletal History: Osteoporosis, Back Pain Prosthesis or Implant: No Neurological History: CVA Blood Disorders: Denies History Psychiatric History: Denies History History of Sexually Transmitted Diseases: No Cancer History: Breast In Past Year Been Physically Harmed or Verbally Threatened: No History of MDRO: Unknown History of Other Communicable Diseases: No Tobacco Use: Former Smoker Alcohol Use: Occasionally Substance Use Type: None Previous Surgical History: Yes Type / Date of Surgery: BILAT CATARACT. BILAT EYE SURGERY RETINAL TEAR/HOLE. 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 HYSTERECTOMY Anesthesia Reactions: No Malignant Hyperthermia: No Significant Family History: No pertinent family hx Past Medical History Reviewed: Reviewed - No Changes ROS - Limitations ROS Limitations: No Limitations Constitution: REPORTS: Denies Symptoms Cardiovascular: REPORTS: Denies Cardiac Symptoms Respiratory: REPORTS: Denies Resp Symptoms Neurological: REPORTS: Denies Neuro Symptoms Gastrointestinal: REPORTS: Constipation Endocrine: REPORTS: Denies Symptoms Musculoskeletal: REPORTS: Denies MS Symptoms Genitourinary: REPORTS: Denies Symptoms Eyes: REPORTS: Denies Symptoms ENT: REPORTS: Denies Symptoms Skin: REPORTS: Denies Skin Symptoms Lympathic: REPORTS: Denies Lympathic Symptoms Immunologic: POSITIVE: Denies Symptoms Psychiatric: POSITIVE: Denies Psych Symptoms General Adult Exam - General Appearance General Appearance: POSITIVE: Alert, Cooperative, No Acute Distress, No Evidence of Trauma - HEENT HEENT: POSITIVE: Head Inspection Nml, Eyes Inspection Nml, Ears Inspection Nml, Nose Inspection Nml, Oral/Dental Inspect. Nml, Pharynx Inspect. Nml, PERRL, EOMI - Pupils Pupil Size: 3 mm: Bilateral (PERRLA) - Neck Neck: POSITIVE: Normal Inspection, Thyroid Normal - Respiratory Respiratory: POSITIVE: No Respiratory Distress, Breath Sounds Normal, Chest Non- Tender - Cardiovascular Cardiovascular: POSITIVE: Regular Rate & Rhythm, No Murmur, No Gallop, PMI Normal Peripheral Pulses: Radial (R): 2+, Radial (L): 2+ - Abdomen Abdomen: Soft: (All Quadrants), Normal Bowel Sounds: (All Quadrants), Denies Tenderness: (All Quadrants), No Splenomegaly: (All Quadrants), No Hepatomegaly: (All Quadrants), No Guarding: (All Quadrants), No Rebound: (All Quadrants), No Palpable Pulse: (All Quadrants), No Palpabale Mass: (All Quadrants), No Distention: (All Quadrants), No Rigidity: (All Quadrants) - Rectal Rectal: POSITIVE: Non Tender, Normal Rectal Tone, Heme Negative Stool, Fecal Impaction (Rectal fecal impaction) - Back Back: POSITIVE: Normal Inspection - Skin Skin: POSITIVE: Normal Color, Warm, Dry, No Rash - Extremities Extremity: Non-Tender: (All Extremities), Normal ROM: (All Extremities), Normal Inspection: (All Extremities) - Neurological / Psychological Neurological: POSITIVE: Affect Apporpriate, Oriented X3, window framer Normal As Tested. NEGATIVE: Motor Normal (Right hemiplegia due to CVA in August) Procedures - Additional Procedures Additional Procedures: Other (Patient given 2 fleets enemas with good evacuation of fecal impaction. Patient feels much better on discharge.) General Adult Progress - Results Reviewed by me Lab Results Reviewed: Yes Lab Results:: Laboratory Results 02/04/17 Range/Units 13:23 WBC 7.27 (4.8-10.8) 10^3/uL RBC 4.47 (4.20-5.40) 10^6/uL Hgb 13.3 (12.0-16.0) g/dL Hct 42.2 (37.0-47.0) % MCV 94.4 (81-99) FL MCH 29.8 (27-31) PG MCHC 31.5 L (33-37) g/dL RDW Std Deviation 43.3 (39-50) fL RDW Coeff of Bernadette 12.8 (11.5-14.5) % Plt Count 293 (140-350) 10*3/uL MPV 9.8 (7.4-12.2) FL Immature Gran % (Auto) 0 (0-5) % Neut % (Auto) 83.3 H (50-80) % Lymph % (Auto) 9.9 L (10-50) % [place] % (Auto) 6.2 (5-15) % Eos % (Auto) 0.3 (0-8) % Baso % (Auto) 0.3 (0-1) % Immature Gran # (Auto) 0 10*3/UL Neut # (Auto) 6.06 10*3/UL Lymph # (Auto) 0.72 10*3/uL [place] # (Auto) 0.45 (0.3-0.8) 10*3/UL Eos # (Auto) 0.02 10*3/UL Baso # (Auto) 0.02 10*3/UL WBC Morphology Comment Normal morphology (NORM) Plt Morphology Comment Normal morphology (NORM) RBC Morph Comment Normal morphology (NORM) Sodium 137 (135-145) meq/L Potassium 4.1 (3.8-5.2) meq/L Chloride 101 (98-112) meq/L Carbon Dioxide 27 (23-33) meq/L Anion Gap 9 (5-20) BUN 6 L (7-22) mg/dL Creatinine 0.6 (0.50-1.20) mg/dL Estimated GFR > 60 (>60 ml/min/1.73m(2)) BUN/Creatinine Ratio 10.00 (6-20) Glucose 102 (78-110) mg/dL Calculated Osmolality 281.0 (267-292) mOsm/kg Calcium 10.2 (8.7-10.7) mg/dL Magnesium 1.6 (1.6-2.4) mg/dL Total Bilirubin 0.6 (0.3-1.2) mg/dL AST 20 (8-39) IU/L ALT 24 (9-52) IU/L Alkaline Phosphatase 109 (38-126) IU/L Total Creatine Kinase 21 L (30-136) IU/L CK-MB (CK-2) 0.64 (0.00-5.00) NG/ML Troponin I < 0.012 (< 0.040) ng/mL Total Protein 6.6 (6.1-8.0) g/dL Albumin 3.8 (3.5-4.8) g/dL Globulin 2.8 (2.50-4.10) g/dL Albumin/Globulin Ratio 1.30 (1.3-2.0) mg/g EKG Interpreted/Reviewed By Me:: Yes (normal) EKG Interpretation:: POSITIVE: Normal Sinus Rhythm, Normal Rate, Normal Intervals, Normal [place], Normal QRS, Normal ST/T - Patient's Progress Pain Medication Addressed: POSITIVE: Not Applicable School/Work Release Addressed: POSITIVE: Not Applicable Re-Examine Time: 16:00 Re-Examine Comment: Patient evacuated bowels well following enemas Status: POSITIVE: Improved, Re-Examined Antibiotics Given: No CVA/Syncope: POSITIVE: EKG - Consult Counseled: POSITIVE: Patient, Family, RE: Lab Results, RE: DX, RE: Need for F/U Patient Care Time - Estimated PCT Patient Care Time (In Minutes): 60 Vital Signs - VS Reviewed Vital Signs Reviewed: Yes Discharge Clinical Impression: Constipation, acute, Vaso-vagal reaction Discharge Disposition: Discharged to Home Condition: Fair Patient Instructions Given at Discharge: Constipation (ED), High Fiber Diet (ED ) Additional Instructions: I believe the lightheadedness see you experienced while your straining to have a bowel movement cause you to be dizzy and feel like passing out. This is known as a vasovagal reaction. Please increase your dietary fluids and fiber. You may also have [id number] constipation medications, such as Dulcolax. Follow-up with your primary care provider. Return here anytime if condition worsens in any way. Follow Up With: MARIJA BOYER [Primary Care Provider] - (Instructions as above. Follow-up with your primary care provider. Return anytime if condition worsens in any way.)
== END 2017-02-04 16:35 | disposition home or self-care (01) ==
LOC: ER 12:25
DX: K59.00 Constipation, unspecified (principal); R55 Syncope and collapse; R42 Dizziness and giddiness; I10 Essential (primary) hypertension; R06.02 Shortness of breath
CPT/HCPCS: 80053; 82272; 82550; 82553; 83735; 84484; 85025; 93005; 93010; 99283; J7030

== ENCOUNTER → 2017-03-05 | Outpatient (CLI) | payer OTHER ==
[2017-03-05 16:00] LABS: BILIRUBIN,URINE NEGATIVE (NEG); CLARITY,URINE CLEAR (CLEAR); COLOR,URINE YELLOW; GLUCOSE, URINE (UA) NEGATIVE (NEG); NITRATE,URINE NEGATIVE (NEG); OCCULT BLOOD,URINE NEGATIVE (NEG); PH,URINE 5.5 (5.0-8.5); PROTEIN,URINE TRACE mg/dl (NEG); UROBILINOGEN,URINE 0.2 EU/dL (0.2)
[2017-03-05 16:01] LABS: URINE SAMPLE TYPE VOIDED SPECIMEN; URINE SPECIFIC GRAVITY - MAN 1.026
== END ==
LOC: MOB LAB 14:46
PROVIDERS: ATTEND Student in an Organized Health Care Education/Training Program
DX: E03.9 Hypothyroidism, unspecified (principal); I63.511 Cerebral infarction due to unspecified occlusion or stenosis of right middle cerebral artery; I69.354 Hemiplegia and hemiparesis following cerebral infarction affecting left non-dominant side; M33.90 Dermatopolymyositis, unspecified, organ involvement unspecified; J44.9 Chronic obstructive pulmonary disease, unspecified; I95.1 Orthostatic hypotension; I10 Essential (primary) hypertension; R30.0 Dysuria; E55.9 Vitamin D deficiency, unspecified; Z72.0 Tobacco use; Z99.3 Dependence on wheelchair
CPT/HCPCS: 36415; 81003; 82306; 84443